=== PATIENT | female | born 1985 | race Caucasian/White ===

== ENCOUNTER 2016-11-14 10:49 | Emergency (ER) | payer OTHER ==
[~2016-11-14] VITALS: Ht 170.2 cm; Wt 66.0 kg
[~2016-11-14 10:49] MED LIST: HYDR-3533 PO; MACR100C PO; PROM25SU8 PO; TYLE500T PO
[2016-11-14 11:05] VITALS: BP 115/82; PULSE 89; RESP 16; TEMP 97.7; O2SAT 100
[2016-11-14 11:26] LABS: BLOOD, URINE SMALL (NEG); GLUCOSE,URINE NEG (NEG); KETONE, URINE NEG (NEG); NITRITE,URINE NEG (NEG)
[2016-11-14 11:31] LABS: METHOD OF COLLECTION CLEAN CATCH; URINE COLOR YELLOW (YELLW/STRAW)
[2016-11-14 11:45] LABS: BACTERIA, URINE MOD /hpf; COMMENT (UR) CULTURE INDICATED; COMMENT2 (UR) MUCOUS PRESENT; CULTURE IF INDICATED CULTURE INDICATED; SQUAMOUS EPITHELIAL CELL URINE > 8 /hpf (0-5)
--- NOTE | 2016-11-14 11:49 | PD ---
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 She complains of pelvic pain for 3 days. Denies vomiting or diarrhea or fever or missed menstrual periods. Had minimal discharge. No alleviating factors. Severity is moderate. 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 PFSH Past Medical History Diminished Hearing: No Immunizations Current: Yes : 0 Para: 0 Miscarriage: 0 : 0 Ovarian Cysts: Yes (right ovarian cysts) Past Surgical History Gynecologic Surgery: Yes (RIGHT OVARY AND FALLOPIAN TUBE REMOVED DUE TO CYST) Social History Alcohol Use: No Tobacco Use: Yes (/ PPD) Substance Use: No Allergies-Medications (Allergen,Severity, Reaction): Coded Allergies: No Known Allergies (Verified , 03/22/16) Reported Meds & Prescriptions Reported Meds & Active Scripts Active Review of Systems General / Constitutional: No: Fever Eyes: No: Visual changes HENT: No: Headaches Cardiovascular: No: Chest Pain or Discomfort Respiratory: No: Shortness of Breath Gastrointestinal: No: Abdominal Pain Genitourinary: Positive: Pelvic Pain, No: Dysuria Musculoskeletal: No: Pain Skin: No Rash Neurologic: No: Weakness Psychiatric: No: Depression Endocrine: No: Polydipsia Hematologic/Lymphatic: No: Easy Bruising Physical Exam Narrative GENERAL: Well-nourished, well-developed patient in no apparent distress. SKIN: Warm and dry. HEAD: Atraumatic. Normocephalic. EYES: Pupils equal and round. No scleral icterus. No injection or drainage. ENT: No nasal bleeding or discharge. Mucous membranes pink and moist. NECK: Trachea midline. No JVD. CARDIOVASCULAR: Regular rate and rhythm. No murmur appreciated. RESPIRATORY: No accessory muscle use. Clear to auscultation. Breath sounds equal bilaterally. GASTROINTESTINAL: Abdomen soft, mild left lower quadrant tenderness without rebound or guarding, nondistended. Hepatic and splenic margins not palpable. MUSCULOSKELETAL: No obvious deformities. No clubbing. No cyanosis. No edema. NEUROLOGICAL: Awake and alert. No obvious cranial nerve deficits. Motor grossly within normal limits. Normal speech. PSYCHIATRIC: Appropriate mood and affect; insight and judgment normal. Pelvic: Thick white discharge consistent with yeast. No cervical motion tenderness. No bleeding. No adnexal mass Data Data Last Documented VS Vital Signs Date Time Temp Pulse Resp B/P Pulse Ox O2 Delivery O2 Flow Rate FiO2 11/14/16 11:59 20 11/14/16 11:05 97.7 89 115/82 100 Orders Urinalysis - C+S If Indicated (11/14/16 11:09) Ed Urine Pregnancytest Poc (11/14/16 11:41) Gc And Chlamydia Pcr (11/14/16 11:41) Wet Prep Profile (11/14/16 11:41) Urine Culture (11/14/16 11:20) Labs Laboratory Tests Test 11/14/16 11/14/16 11:20 11:45 Urine Collection Type CLEAN CATCH Urine Color YELLOW Urine Turbidity SLIGHT Urine pH 6.0 Urine Specific [place] 1.007 Urine Protein NEG mg/dL Urine Glucose (UA) NEG mg/dL Urine Ketones NEG mg/dL Urine Occult Blood SMALL Urine Nitrite NEG Urine Bilirubin NEG Urine Leukocyte Esterase SMALL Urine RBC 4-9 /hpf Urine WBC 9-14 /hpf Urine Squamous Epithelial > 8 /hpf Cells Urine Amorphous Sediment FEW Urine Bacteria MOD /hpf Microscopic Urinalysis Comment CULTURE INDICATED Urine Collection Time 1120 Clue Cells (Wet Prep) PRESENT Vaginal Trichomonas (Wet Prep) NONE SEEN Vaginal Yeast (Wet Prep) NONE SEEN MDM Medical Decision Making Medical Screen Exam Complete: Yes Emergency Medical Condition: Yes Medical Record Reviewed: Yes Differential Diagnosis Differential diagnosis includes PID, ectopic , ovarian cyst, ovarian torsion, endometriosis. Narrative Course I have reviewed the patient's electronic medical record. Urine is negative Urinalysis will be cultured but not overly suspicious for infection. A lot of epithelial cells present Wet prep is positive for clue cells suggesting bacterial vaginosis GC and Chlamydia sent but will take hours Discussed the above with patient. She does have a [facility] doctor she will call Wednesday for follow-up. I prescribed her Flagyl Diagnosis Primary Impression: Pelvic pain Additional Impression: Bacterial vaginosis Additional Instructions: The patient was advised to follow up with their physician and return if they worsen. Med/Other Pt SpecificInfo: Prescription(s) given Scripts Metronidazole (Flagyl)500 Mg Spo282 Mg PO TID #20 TAB Ref 0 Prov:Gopal Farris MD 11/14/16 Disposition: 01 DISCHARGE HOME Condition: Stable Gopal Farris MD Nov 14, 2016 11:49
[2016-11-14] MEDS ORDERED: METR-1 PO (13:06)
[2016-11-14 13:13] VITALS: BP 116/72
[2016-11-14 16:37] LABS: CHLAMYDIA PCR NOT DETECTED (NOT DETECT); NEISSERIA PCR NOT DETECTED (NOT DETECT)
== END 2016-11-14 13:17 | disposition home or self-care (01) ==
LOC: PHED 10:49
DX: R10.2 Pelvic and perineal pain (principal); N76.0 Acute vaginitis; B96.89 Other specified bacterial agents as the cause of diseases classified elsewhere
CPT/HCPCS: 81001; 84703; 87086; 87210; 87491; 87591; 99284

== ENCOUNTER 2017-03-30 13:34 | Emergency (ER) | payer OTHER ==
[~2017-03-30] VITALS: Ht 170.2 cm; Wt 71.0 kg
[~2017-03-30 13:34] MED LIST changes: -HYDR-3533 PO; -MACR100C PO; +METR-1 PO; -PROM25SU8 PO; -TYLE500T PO
[2017-03-30 13:46] VITALS: BP 139/81; PULSE 75; RESP 18; TEMP 98; O2SAT 100
[2017-03-30] MEDS ORDERED: KETOROLAC TROMETHAMINE 60 MG/2 ML (IM) VIAL IM ONE (14:00)
--- NOTE | 2017-03-30 14:03 | PD ---
HPI Chief Complaint: Chest Pain Time Seen by Provider: 13:51 Travel History International Travel<30 days: No Contact w/Intl Traveler<30days: No Traveled to known affect area: No History of Present Illness HPI C/O SHARP PAIN TO LEFT SIDED CHEST WALL, WORSE WITH MOVEMENT, 03/29, NONRADIATING..DENIES TRAUMA PFSH Past Medical History Medical History: Denies Significant Hx Diminished Hearing: No Immunizations Current: Yes Influenza Vaccination: No ?: Not LMP: 03/07/17 : 0 Para: 0 Miscarriage: 0 : 0 Ovarian Cysts: Yes (right ovarian cysts) Past Surgical History Gynecologic Surgery: Yes (RIGHT OVARY AND FALLOPIAN TUBE REMOVED DUE TO CYST) Other Surgery: Yes (multiple breast tumors removed, skin lesions removed ( dysplastic nevius )) Social History Alcohol Use: No Tobacco Use: Yes (09/21 PPD) Substance Use: No Allergies-Medications (Allergen,Severity, Reaction): Coded Allergies: No Known Allergies (Verified , 03/22/16) Reported Meds & Prescriptions Reported Meds & Active Scripts Active No Active Prescriptions or Reported Medications Review of Systems Except as stated in HPI: all other systems reviewed are Neg Cardiovascular: Positive: Chest Pain or Discomfort, Other (CHEST WALL PAIN, WORSE WITH MOVEMNET) Physical Exam Narrative GENERAL: SKIN: Warm and dry. HEAD: Atraumatic. Normocephalic. EYES: Pupils equal and round. No scleral icterus. No injection or drainage. ENT: No nasal bleeding or discharge. Mucous membranes pink and moist. NECK: Trachea midline. No JVD. CARDIOVASCULAR: Regular rate and rhythm. RESPIRATORY: No accessory muscle use. Clear to auscultation. Breath sounds equal bilaterally. GASTROINTESTINAL: Abdomen soft, non-tender, nondistended. Hepatic and splenic margins not palpable. MUSCULOSKELETAL: Extremities without clubbing, cyanosis, or edema. No obvious deformities. REPRODUCIBLE CHEST WALL PAIN WITHOUT CREPITUS OVER LEFT CW NEUROLOGICAL: Awake and alert. No obvious cranial nerve deficits. Motor grossly within normal limits. Five out of 5 muscle strength in the arms and legs. Normal speech. PSYCHIATRIC: Appropriate mood and affect; insight and judgment normal. Data Data Last Documented VS Vital Signs Date Time Temp Pulse Resp B/P Pulse Ox O2 Delivery O2 Flow Rate FiO2 03/30/17 13:48 70 Room Air 03/30/17 13:46 98.0 18 139/81 100 Orders Electrocardiogram (03/30/17 13:56) Group A Rapid Strep Screen (03/30/17 13:56) Influenzae A/B Antigen (03/30/17 13:56) Chest, Single Ap (03/30/17 13:56) Ketorolac Inj (Toradol Inj) (03/30/17 14:00) Strep Culture (Group A) (03/30/17 14:20) MDM Medical Decision Making Medical Screen Exam Complete: Yes Emergency Medical Condition: Yes Medical Record Reviewed: Yes Interpretation(s) NSR 64, IRBBB, NO STEMI PATTERN, NONSPEC STT CHANGES Differential Diagnosis FLU V STREP V PNA V RIB FX V CHEST WALL PAIN Narrative Course FLU/STREP NEG, CXR NEG FOR PNA OR RIB FX OR PTX....PT VSS AND WILL D/C WITH CHEST WALL PAIN Diagnosis Primary Impression: Acute chest wall pain Scripts Methocarbamol (Robaxin)500 Mg Tab1,000 Mg PO TID #21 TAB Ref 0 Prov:Selvin Chacko MD 03/30/17 Tramadol (Ultram)50 Mg Tab50 Mg PO Q4H PRN (PAIN) #28 TAB Prov:Selvin Chacko MD 03/30/17 Disposition: 01 DISCHARGE HOME Condition: Stable Selvin Chacko MD Mar 30, 2017 14:03
--- NOTE | 2017-03-30 15:07 | RADRPT ---
EXAM DATE/TIME: 03/30/2017 14:07 [facility] COMPARISON: No previous studies available for comparison. INDICATIONS : Chest pain, dizziness, and left side numbness. MEDICAL HISTORY : None. SURGICAL HISTORY : None. ENCOUNTER: Initial ACUITY: 2 days PAIN SCORE: 4/10 LOCATION: Bilateral chest FINDINGS: The lungs are clear without infiltrate, nodule, or mass. There is no appreciable pleural effusion fo r technique. Heart and mediastinum are unremarkable. CONCLUSION: No acute cardiopulmonary disease. Kasey Nieto MD on March 30, 2017 at 15:05 Board Certified Radiologist. This report was verified electronically.
[2017-03-30] MEDS ORDERED: ROBA500T PO (15:25)
[2017-03-30] MEDS ORDERED: ULTR50TA5 PO (15:25)
[2017-03-30 15:59] VITALS: BP 122/74
--- NOTE | 2017-03-31 17:00 | EKG ---
Date Performed: 03/30/2017 Time Performed: 13:42:28 PTAGE: 32 years EKG: Sinus rhythm INCOMPLETE RIGHT BUNDLE BRANCH BLOCK BORDERLINE ECG Compared to prior tracing no significant change DOCTOR: Agatha Carney Interpretating Date/Time 03/31/2017 17:00:11
== END 2017-03-30 16:00 | disposition home or self-care (01) ==
LOC: PHED 13:34
DX: R07.89 Other chest pain (principal); R94.31 Abnormal electrocardiogram [ECG] [EKG]; F17.210 Nicotine dependence, cigarettes, uncomplicated
CPT/HCPCS: 71010; 87081; 87804; 87880; 93005; 96372; 99285; J1885

== ENCOUNTER 2017-07-07 12:07 | Emergency (ER) | payer OTHER ==
[~2017-07-07] VITALS: Ht 170.2 cm; Wt 70.0 kg
[~2017-07-07 12:07] MED LIST changes: -METR-1 PO; +ROBA500T PO; +ULTR50TA5 PO
[2017-07-07 12:20] VITALS: BP 120/81; PULSE 82; RESP 16; TEMP 98.2; O2SAT 97
[2017-07-07 13:45] VITALS: BP_SYST 119; BP_SYST 127; BP_DIAS 61; BP_DIAS 65; PULSE 62; O2SAT 98
[2017-07-07] MEDS ORDERED: SODIUM CHLORIDE 0.9% FLUSH 10 ML FLUSH IVF PRN (13:45)
[2017-07-07 14:01] LABS: AUTOMATED NEUTROPHIL # 3.2 TH/MM3 (1.8-7.7); BASOPHIL # 0.1 TH/MM3 (0-0.2); EOSINOPHIL # 0.1 TH/MM3 (0-0.4); EOSINOPHIL % 1.4 % (0.0-4.0); HEMATOCRIT 41.2 % (35.0-46.0); HEMO FLAGS DIFF FINAL; LYMPH % 29.8 % (9.0-44.0); LYMPHOCYTE # 1.6 TH/MM3 (1.0-4.8); MEAN CELL VOLUME 93.1 FL (80.0-100.0); MEAN CORPUSCULAR HEMOGLOBIN 30.9 PG (27.0-34.0); MEAN CORPUSCULAR HGB CONC 33.2 % (32.0-36.0); MONO % 9.2 % (0.0-8.0); NEUT % 58.6 % (16.0-70.0); PLATELET COUNT 250 TH/MM3 (150-450); RED BLOOD COUNT 4.43 MIL/MM3 (4.00-5.30); RED CELL DISTRIBUTION WIDTH 12.6 % (11.6-17.2); WHITE BLOOD COUNT 5.4 TH/MM3 (4.0-11.0)
[2017-07-07 14:08] LABS: CHLORIDE 102 MEQ/L (98-107); POTASSIUM 3.7 MEQ/L (3.5-5.1); SODIUM (NA) 135 MEQ/L (136-145)
--- NOTE | 2017-07-07 14:09 | RADRPT ---
EXAM DATE/TIME: 07/07/2017 13:47 [facility] COMPARISON: CHEST SINGLE AP, March 30, 2017, 14:07. INDICATIONS : Chest pain. MEDICAL HISTORY : None. SURGICAL HISTORY : None. ENCOUNTER: Initial ACUITY: 1 day PAIN SCORE: 7/10 LOCATION: Left upper chest FINDINGS: A single view of the chest demonstrates the lungs to be symmetrically aerated without evidence of mas s, infiltrate or effusion. The cardiomediastinal contours are unremarkable. Osseous structures are intact. CONCLUSION: No acute disease. Eduin Harvey MD FACR on July 07, 2017 at 14:08 Board Certified Radiologist. This report was verified electronically.
[2017-07-07 14:12] LABS: ANION GAP 8 MEQ/L (5-15); BICARBONATE 24.7 MEQ/L (21.0-32.0); BLOOD UREA NITROGEN 8 MG/DL (7-18)
[2017-07-07 14:15] LABS: ALT (GPT) 20 U/L (10-53); AST (GOT) 18 U/L (15-37); GLOMERULAR FILTRATION RATE 176 ML/MIN (>89)
[2017-07-07 14:17] LABS: TOTAL BILIRUBIN ADULT 0.6 MG/DL (0.2-1.0)
[2017-07-07 14:18] LABS: ALKALINE PHOSPHATASE 56 U/L (45-117)
[2017-07-07] MEDS ORDERED: GABA100C4 PO (14:32)
[2017-07-07] MEDS ORDERED: NAPR500T PO (14:32)
--- NOTE | 2017-07-07 14:32 | PD ---
HPI Chief Complaint: Chest Pain Time Seen by Provider: 13:29 Travel History International Travel<30 days: No Contact w/Intl Traveler<30days: No Traveled to known affect area: No History of Present Illness HPI This is a 32-year-old female who presents to the emergency department with left sided neck, upper back and chest discomfort that radiates down her left arm, constant, moderate severity associated with numbness and tingling that goes all the way up and down her left arm. It's worse when she moves her arm. It's been going on since yesterday. She feels a little bit lightheaded and dizzy when it happens. She has trouble laying on her left side. She does have a smoking history and her father had a heart attack when he was 49. PFSH Past Medical History Diminished Hearing: No Immunizations Current: Yes Influenza Vaccination: No ?: Not LMP: 06/26 : 0 Para: 0 Miscarriage: 0 : 0 Ovarian Cysts: Yes (right ovarian cysts) Past Surgical History Gynecologic Surgery: Yes (RIGHT OVARY AND FALLOPIAN TUBE REMOVED DUE TO CYST) Other Surgery: Yes (multiple breast tumors removed, skin lesions removed ( dysplastic nevius )) Social History Alcohol Use: No Tobacco Use: Yes (/2 PPD) Substance Use: No Allergies-Medications (Allergen,Severity, Reaction): Coded Allergies: No Known Allergies (Verified , 07/07/17) Reported Meds & Prescriptions Reported Meds & Active Scripts Active No Active Prescriptions or Reported Medications Review of Systems Except as stated in HPI: all other systems reviewed are Neg Physical Exam Narrative GENERAL:Well appearing, no acute distress SKIN: Focused skin assessment warm and dry. HEAD: Atraumatic. Normocephalic. EYES: Pupils equal and round. No injection or drainage. ENT: Moist mucous membranes NECK: Trachea midline. CARDIOVASCULAR: Regular rate and rhythm. No murmur appreciated. 2+ left radial pulse with normal capillary refill. RESPIRATORY: Clear to auscultation. Breath sounds equal bilaterally. GASTROINTESTINAL: Abdomen soft, non-tender, nondistended. MUSCULOSKELETAL: Tender to palpation over the left paracervical muscles and left upper chest wall NEUROLOGICAL: Awake and alert. No obvious cranial nerve deficits. Moving all extremities. PSYCHIATRIC: Appropriate mood and affect; insight and judgment normal. Data Data Last Documented VS Vital Signs Date Time Temp Pulse Resp B/P (MAP) Pulse Ox O2 Delivery O2 Flow Rate FiO2 07/07/17 13:45 62 127/65 (85) 98 07/07/17 13:45 Room Air 07/07/17 12:20 98.2 16 Orders Orders Electrocardiogram (07/07/17 13:43) Complete Blood Count With Diff (07/07/17 13:43) Comprehensive Metabolic Panel (07/07/17 13:43) Troponin I (07/07/17 13:43) Chest, Single Ap (07/07/17 13:43) Ecg Monitoring (07/07/17 13:43) Bilateral Bp Monitoring (07/07/17 13:43) Iv Access Insert/Monitor (07/07/17 13:43) Oximetry (07/07/17 13:43) Oxygen Administration (07/07/17 13:43) Sodium Chloride 0.9% Flush (Ns Flush) (07/07/17 13:45) Labs Laboratory Tests Test 07/07/17 13:55 White Blood Count 5.4 TH/MM3 Red Blood Count 4.43 MIL/MM3 Hemoglobin 13.7 GM/DL Hematocrit 41.2 % Mean Corpuscular Volume 93.1 FL Mean Corpuscular Hemoglobin 30.9 PG Mean Corpuscular Hemoglobin Concent 33.2 % Red Cell Distribution Width 12.6 % Platelet Count 250 TH/MM3 Mean Platelet Volume 8.2 FL Neutrophils (%) (Auto) 58.6 % Lymphocytes (%) (Auto) 29.8 % Monocytes (%) (Auto) 9.2 % Eosinophils (%) (Auto) 1.4 % Basophils (%) (Auto) 1.0 % Neutrophils # (Auto) 3.2 TH/MM3 Lymphocytes # (Auto) 1.6 TH/MM3 Monocytes # (Auto) 0.5 TH/MM3 Eosinophils # (Auto) 0.1 TH/MM3 Basophils # (Auto) 0.1 TH/MM3 CBC Comment DIFF FINAL Differential Comment Blood Urea Nitrogen 8 MG/DL Creatinine 0.42 MG/DL Random Glucose 91 MG/DL Total Protein 7.0 GM/DL Albumin 3.7 GM/DL Calcium Level 8.5 MG/DL Alkaline Phosphatase 56 U/L Aspartate Amino Transf (AST/SGOT) 18 U/L Alanine Aminotransferase (ALT/SGPT) 20 U/L Total Bilirubin 0.6 MG/DL Sodium Level 135 MEQ/L Potassium Level 3.7 MEQ/L Chloride Level 102 MEQ/L Carbon Dioxide Level 24.7 MEQ/L Anion Gap 8 MEQ/L Estimat Glomerular Filtration Rate 176 ML/MIN Troponin I LESS THAN 0.02 NG/ML MDM Medical Decision Making Medical Screen Exam Complete: Yes Emergency Medical Condition: Yes Interpretation(s) EKG: Normal sinus rhythm with no ST changes No leukocytosis Electrolytes are reassuring Troponin is normal Chest x-ray: No acute process Differential Diagnosis Acute coronary syndrome, cervical radiculopathy, costochondritis Narrative Course This is a 32-year-old female who presents to the emergency department with left- sided neck and chest pain that's been constant as yesterday. The description of her symptoms is neuropathic in nature. She has reassuring labs, EKG and chest x-ray. In the setting of constant pain for over 8 hours I think one troponin is reassuring especially given she is quite low risk at 32 years old. Her pain would be very atypical for acute coronary syndrome. I think she has a cervical radiculopathy which is causing her symptoms. Plan for gabapentin and anti-inflammatory. She was given referral for [facility]. Diagnosis Primary Impression: Cervical lymphadenopathy Patient Instructions: General Instructions Additional Instructions: If you develop severe chest pain, shortness of breath, sweating, lightheadedness , dizziness or difficulty breathing return to the emergency department immediately. Followup with your primary care physician in 2-3 days if your symptoms are not resolved. Med/Other Pt SpecificInfo: Prescription(s) given Scripts Naproxen (Naproxen) 500 Mg Tab 500 MG PO BID Y for PAIN SCALE 4 TO 10, #20 TAB 0 Refills Prov: Alexandra Christian MD 07/07/17 Gabapentin (Gabapentin) 100 Mg Cap 100 MG PO TID, #90 CAP 0 Refills Prov: Alexandra Christian MD 07/07/17 Disposition: 01 DISCHARGE HOME Condition: Stable Alexandra Christian MD Jul 07, 2017 14:32
--- NOTE | 2017-07-07 14:46 | PD ---
Data Data Last Documented VS Vital Signs Date Time Temp Pulse Resp B/P (MAP) Pulse Ox O2 Delivery O2 Flow Rate FiO2 07/07/17 14:43 07/07/17 13:45 62 98 07/07/17 13:45 Room Air 07/07/17 12:20 98.2 16 Orders Orders Electrocardiogram (07/07/17 13:43) Complete Blood Count With Diff (07/07/17 13:43) Comprehensive Metabolic Panel (07/07/17 13:43) Troponin I (07/07/17 13:43) Chest, Single Ap (07/07/17 13:43) Ecg Monitoring (07/07/17 13:43) Bilateral Bp Monitoring (07/07/17 13:43) Iv Access Insert/Monitor (07/07/17 13:43) Oximetry (07/07/17 13:43) Oxygen Administration (07/07/17 13:43) Sodium Chloride 0.9% Flush (Ns Flush) (07/07/17 13:45) Ed Discharge Order (07/07/17 14:33) Labs Laboratory Tests Test 07/07/17 13:55 White Blood Count 5.4 TH/MM3 Red Blood Count 4.43 MIL/MM3 Hemoglobin 13.7 GM/DL Hematocrit 41.2 % Mean Corpuscular Volume 93.1 FL Mean Corpuscular Hemoglobin 30.9 PG Mean Corpuscular Hemoglobin Concent 33.2 % Red Cell Distribution Width 12.6 % Platelet Count 250 TH/MM3 Mean Platelet Volume 8.2 FL Neutrophils (%) (Auto) 58.6 % Lymphocytes (%) (Auto) 29.8 % Monocytes (%) (Auto) 9.2 % Eosinophils (%) (Auto) 1.4 % Basophils (%) (Auto) 1.0 % Neutrophils # (Auto) 3.2 TH/MM3 Lymphocytes # (Auto) 1.6 TH/MM3 Monocytes # (Auto) 0.5 TH/MM3 Eosinophils # (Auto) 0.1 TH/MM3 Basophils # (Auto) 0.1 TH/MM3 CBC Comment DIFF FINAL Differential Comment Blood Urea Nitrogen 8 MG/DL Creatinine 0.42 MG/DL Random Glucose 91 MG/DL Total Protein 7.0 GM/DL Albumin 3.7 GM/DL Calcium Level 8.5 MG/DL Alkaline Phosphatase 56 U/L Aspartate Amino Transf (AST/SGOT) 18 U/L Alanine Aminotransferase (ALT/SGPT) 20 U/L Total Bilirubin 0.6 MG/DL Sodium Level 135 MEQ/L Potassium Level 3.7 MEQ/L Chloride Level 102 MEQ/L Carbon Dioxide Level 24.7 MEQ/L Anion Gap 8 MEQ/L Estimat Glomerular Filtration Rate 176 ML/MIN Troponin I LESS THAN 0.02 NG/ML MDM Supervised Visit with ASHLEY: No Narrative Course Diagnosis was changed to cervical radiculopathy, lymphadenopathy had been chosen in error Diagnosis Primary Impression: Cervical radiculopathy Referrals: [facility] call for appointment Patient Instructions: General Instructions, Lymphadenopathy (ED) Departure Forms: Tests/Procedures Additional Instruction: If you develop severe chest pain, shortness of breath, sweating, lightheadedness , dizziness or difficulty breathing return to the emergency department immediately. Followup with your primary care physician in 2-3 days if your symptoms are not resolved. Scripts Naproxen (Naproxen) 500 Mg Tab 500 MG PO BID Y for PAIN SCALE 4 TO 10, #20 TAB 0 Refills Prov: Alexandra Christian MD 07/07/17 Gabapentin (Gabapentin) 100 Mg Cap 100 MG PO TID, #90 CAP 0 Refills Prov: Alexandra Christian MD 07/07/17 Disposition: 01 DISCHARGE HOME Condition: Stable Alexandra Christian MD Jul 07, 2017 14:46
--- NOTE | 2017-07-08 11:28 | EKG ---
Date Performed: 07/07/2017 Time Performed: 12:13:01 PTAGE: 32 years EKG: Sinus rhythm LOW QRS VOLTAGE IN PRECORDIAL LEADS INCOMPLETE RIGHT BUNDLE BRANCH BLOCK BORDERLINE ECG Compared to prior tracing no significant change PREVIOUS TRACING : 03/30/2017 13.42 DOCTOR: Steven Pardo Interpretating Date/Time 07/08/2017 11:26:17
== END 2017-07-07 14:56 | disposition home or self-care (01) ==
LOC: PHED 12:07
DX: M54.12 Radiculopathy, cervical region (principal); F17.210 Nicotine dependence, cigarettes, uncomplicated
CPT/HCPCS: 71010; 80053; 84484; 85025; 93005